=== PATIENT | male | born 2005 | race Caucasian/White ===

== ENCOUNTER 2023-12-21 23:22 | Emergency (ER) | payer OTHER ==
[2023-12-21 23:43] VITALS: BP 134/83; PULSE 121; RESP 18; TEMP 98.4; BMI 33.3
[2023-12-22] MEDS ORDERED: IBUPROFEN 400 MG TABLET (FP) PO ONE (01:00)
[2023-12-22] MEDS: IBUPROFEN 400 MG TABLET (FP) PO ONE (01:01)
[2023-12-22] MEDS ORDERED: AMOX TR/POT CLAV 875MG/125MG TABLETS (FP) ONE (02:29)
[2023-12-22] MEDS: AMOX TR/POT CLAV 875MG/125MG TABLETS (FP) PO ONE (02:33)
== END 2023-12-22 03:02 | disposition home or self-care (01) ==
LOC: JER 23:22
PROC: 0HQ1XZZ Repair Face Skin, External Approach (ICD-10-PCS; principal; 2023-12-21)
PROC: 2W3CX1Z Immobilization of Right Lower Arm using Splint (ICD-10-PCS; 2023-12-21)
DX: S62.306A Unspecified fracture of fifth metacarpal bone, right hand, initial encounter for closed fracture (principal); S01.81XA Laceration without foreign body of other part of head, initial encounter; Y04.1XXA Assault by human bite, initial encounter
CPT/HCPCS: 73130-TC-RT-FY; 99283-25